=== PATIENT | female | born 1965 | race African-American/Black ===

== ENCOUNTER 2025-01-01 22:48 | Emergency (ER) | payer MEDICAID ==
[~2025-01-01] VITALS: Ht 167.6 cm; Wt 90.0 kg
[2025-01-01 22:56] VITALS: BP 182/99; PULSE 93; RESP 14; TEMP 36.5; O2SAT 99
[2025-01-02] MEDS ORDERED: FLUC150T46 MT (02:54)
== END 2025-01-02 04:27 | disposition home or self-care (01) ==
LOC: ER 22:48
DX: B37.9 Candidiasis, unspecified (principal); I10 Essential (primary) hypertension; Z87.19 Personal history of other diseases of the digestive system
CPT/HCPCS: 99283

== ENCOUNTER 2025-01-02 04:23 | Emergency (ER) | payer MEDICAID ==
[~2025-01-02] VITALS: Ht 175.3 cm; Wt 108.0 kg
[~2025-01-02 04:23] MED LIST: FLUC150T46 MT
[2025-01-02 05:08] VITALS: O2SAT 100
[2025-01-02 05:09] VITALS: BP 128/91; PULSE 84; RESP 18; TEMP 36.9; O2SAT 100
== END 2025-01-02 08:03 | disposition left against medical advice (07) ==
LOC: ER 04:23
DX: R68.89 Other general symptoms and signs (principal); Z53.21 Procedure and treatment not carried out due to patient leaving prior to being seen by health care provider